=== PATIENT | male | born 1950 | race Caucasian/White ===

== ENCOUNTER 2023-08-01 07:14 | Day surgery (SDC) | payer BC ==
[~2023-08-01 07:14] MED LIST: Ak-Dilate OPHTHALMIC*** 1.065 ML, Cyclogyl 1% OPHTH SOL 1.065 ML, GATIFLOXACIN 0.5% OPH... OP ONE; BETADINE 5% OPHTHALMIC 30 ML OP ONE; Lactated Ringers 1,000 ML IV ONE; Lactated Ringers 1,000 ML IV SCH; NON-FORMULARY ITEM OP ONE; TETRACAINE 0.5% STERI-UNIT SOL OP ONE; cefUROXime sodium 0.005 GM in Sodium Chloride Flush 30 ML*** 0.5 ML IJ ONE
[2023-08-01] MEDS ORDERED: Epinephrine Preservative Free 1 MG/ML IJ ONE (07:15)
[2023-08-01 07:55] VITALS: RESP 18
[2023-08-01] MEDS ORDERED: ACETAZOLAMIDE 250 MG TABLET PO ONE (09:00)
[2023-08-01] MEDS ORDERED: Zofran 4 MG/2 ML VIAL IV PRN (09:00)
[2023-08-01] MEDS ORDERED: Epinephrine Preservative Free 1 MG/ML ONE (10:00)
[2023-08-01] MEDS ORDERED: DIPRIVAN 200 MG/20 ML IV ONE ×2 (10:09→10:15)
[2023-08-01] MEDS ORDERED: Xylocaine-Mpf 2% 5 Ml Vial ONE (10:13)
[2023-08-01 10:33] VITALS: TEMP 98.3
[2023-08-01 10:37] VITALS: O2SAT 95
[2023-08-01 10:46] VITALS: BP 146/78; PULSE 77
== END 2023-08-01 10:52 | disposition home or self-care (01) ==
LOC: SDC 07:14
PROVIDERS: ATTEND Ophthalmology
DX: H25.811 Combined forms of age-related cataract, right eye (principal)
CPT/HCPCS: J0171; J2704; A9270-GY

== ENCOUNTER 2023-08-29 09:32 | Day surgery (SDC) | payer BC ==
[~2023-08-29 09:32] MED LIST changes: -Lactated Ringers 1,000 ML IV ONE
[2023-08-29] MEDS ORDERED: Epinephrine Preservative Free 1 MG/ML IJ ONE (09:33)
[2023-08-29] MEDS ORDERED: Lactated Ringers 1,000 ML IV ONE (09:46)
[2023-08-29] MEDS ORDERED: Zofran 4 MG/2 ML VIAL IV PRN (11:30)
[2023-08-29] MEDS ORDERED: ACETAZOLAMIDE 250 MG TABLET PO ONE (11:30)
[2023-08-29] MEDS ORDERED: DIPRIVAN 200 MG/20 ML IV ONE (12:09)
[2023-08-29] MEDS ORDERED: SUBLIMAZE 100 MCG/2 ML ONE (12:20)
[2023-08-29] MEDS ORDERED: Versed 2 MG/2 ML Injection ONE (12:24)
[2023-08-29 12:39] VITALS: RESP 16
[2023-08-29 12:48] VITALS: BP 153/75; PULSE 73; TEMP 98.1; O2SAT 95
== END 2023-08-29 12:53 | disposition home or self-care (01) ==
LOC: SDC 09:32
PROVIDERS: ATTEND Ophthalmology
DX: H25.812 Combined forms of age-related cataract, left eye (principal)
CPT/HCPCS: C1780; J0171; J2250; J2704; J3010; A9270-GY